=== PATIENT | male | born 2000 | race American Indian/Alaskan Native ===

== ENCOUNTER 2018-08-24 04:28 | Emergency (ER) | payer BC, MEDICAID, OTHER ==
[2018-08-24 04:34] VITALS: BP 145/70
[2018-08-24] MEDS ORDERED: FLEXERIL PO ONE (05:27)
[2018-08-24] MEDS ORDERED: TORADOL IV ONE (05:27)
[2018-08-24 06:45] LABS: Hemoglobin 12.7 gm/dl (11.8-15.2)
[2018-08-24 06:52] LABS: Basophils % (Auto) 0.5 % (0.0-1.8); Eosinophils # (Auto) 0.1 K/mm3 (0.0-0.4); Eosinophils % (Auto) 1.3 % (0.0-4.3); Hematocrit 39.3 % (35.5-45.6); Lymphocytes # (Auto) 1.7 K/mm3 (1.2-5.4); Mean Corpuscular HGB Conc 32 % (32-34); Monocytes # (Auto) 0.7 K/mm3 (0.0-0.8); Monocytes % (Auto) 8.3 % (0.0-7.3); Platelet Count 285 K/mm3 (140-440); Red Blood Count 5.76 M/mm3 (3.65-5.03); Red Cell Distribution Width 16.9 % (13.2-15.2)
[2018-08-24 06:53] LABS: Mean Corpuscular Volume 68 fl (84-94)
--- NOTE | 2018-08-24 07:08 | XRay Report ---
PROCEDURE: XR CHEST ROUTINE 2V TECHNIQUE: PA and lateral chest radiographs were obtained. HISTORY: cough COMPARISONS: None. FINDINGS: No mediastinal shift. Cardiac silhouette is not enlarged. No pneumothorax, effusion, or focal pulmo nary opacity. No acute skeletal finding. IMPRESSION: No focal pulmonary opacity. This document is electronically signed by Martinez Leavitt MD., August 24 2018 08:07:00 AM ET
[2018-08-24 07:16] LABS: Alanine Aminotransferase 17 units/L (7-56); BUN/Creatinine Ratio 16; Blood Urea Nitrogen 11 mg/dL (9-20); Calcium 9.2 mg/dL (8.4-10.2); Hemolysis Index 2
--- NOTE | 2018-08-24 07:39 | Emergency Department Report ---
ED General Adult HPI - General Chief complaint: Pain General Stated complaint: PAIN OVER BODY Time Seen by Provider: 08/24/18 07:04 Source: patient Mode of arrival: Ambulatory Limitations: No Limitations - History of Present Illness Initial comments: This is a 18-year-old -[place] male who presents the emergency room with generalized body aches for 2 days. Reports increase in pain over the past 2 days without injury. He reports pain as achy sensation. He has not tried anything for symptom relief. He denies fever, cough, coryza, nausea, vomiting, diarrhea, weakness, or parasthesia. Onset/Timin -: days(s) Radiation: non-radiation Severity scale (0 -10): 0 Quality: aching Consistency: intermittent Improves with: none Worsens with: none Associated Symptoms: denies other symptoms Treatments Prior to Arrival: none - Related Data Previous Rx's Medication Instructions Recorded Last Taken Type Ibuprofen [Motrin 600 MG tab] 600 mg PO Q8H PRN #14 tablet 04/10/15 Unknown Rx Ibuprofen [Motrin 800 MG tab] 800 mg PO Q8HR PRN #20 tablet 08/24/18 Unknown Rx methOCARBAMOL [Robaxin TAB] 500 mg PO BID PRN #15 tab 08/24/18 Unknown Rx Allergies Allergy/AdvReac Type Severity Reaction Status Date / Time No Known Allergies Allergy Unverified 04/10/15 18:27 ED Review of Systems ROS: Stated complaint: PAIN OVER BODY Other details as noted in HPI Constitutional: denies: chills, fever Respiratory: denies: cough, shortness of breath, wheezing Cardiovascular: denies: chest pain, palpitations Gastrointestinal: denies: abdominal pain, nausea, diarrhea Musculoskeletal: myalgia. denies: back pain, joint swelling, arthralgia Skin: denies: rash, lesions Neurological: denies: headache, weakness, paresthesias Psychiatric: denies: anxiety, depression ED Past Medical Hx - Past Medical History Previous Medical History?: No - Surgical History Past Surgical History?: Yes Additional Surgical History: PET, Left Ear surgery - Social History Smoking Status: Never Smoker - Medications Home Medications: Home Medications Medication Instructions Recorded Confirmed Last Taken Type Ibuprofen [Motrin 600 MG tab] 600 mg PO Q8H PRN #14 tablet 04/10/15 Unknown Rx Ibuprofen [Motrin 800 MG tab] 800 mg PO Q8HR PRN #20 tablet 08/24/18 Unknown Rx methOCARBAMOL [Robaxin TAB] 500 mg PO BID PRN #15 tab 08/24/18 Unknown Rx ED Physical Exam - General Limitations: No Limitations General appearance: alert, in no apparent distress, obese (morbidly obese) - ENT ENT exam: Present: mucous membranes moist - Neck Neck exam: Present: normal inspection - Respiratory Respiratory exam: Present: normal lung sounds bilaterally. Absent: respiratory distress - Cardiovascular Cardiovascular Exam: Present: regular rate, normal rhythm. Absent: systolic murmur, diastolic murmur, rubs, gallop - GI/Abdominal GI/Abdominal exam: Present: soft, normal bowel sounds, other (obese abdomen). Absent: distended, tenderness, guarding, rebound, rigid - Back Exam Back exam: Present: full ROM. Absent: CVA tenderness (R), CVA tenderness (L), m uscle spasm, paraspinal tenderness, vertebral tenderness - Neurological Exam Neurological exam: Present: alert, oriented X3, normal gait - Psychiatric Psychiatric exam: Present: normal affect, normal mood - Skin Skin exam: Present: warm, dry, intact, normal color. Absent: rash ED Course Vital Signs 08/24/18 08/24/18 08/24/18 04:33 04:40 06:00 Temperature 98.2 F 98.2 F Pulse Rate 95 H 87 Respiratory 18 18 18 Rate Blood Pressure 145/70 145/70 O2 Sat by Pulse 100 100 Oximetry ED Medical Decision Making - Lab Data Result diagrams: 08/24/18 05:50 08/24/18 05:50 Lab Results 08/24/18 08/24/18 08/24/18 Range/Units 05:50 05:50 05:50 WBC 8.8 (4.5-11.0) K/mm3 RBC 5.76 H (3.65-5.03) M/mm3 Hgb 12.7 (11.8-15.2) gm/dl Hct 39.3 (35.5-45.6) % MCV 68 L (84-94) fl MCH 22 L (28-32) pg MCHC 32 (32-34) % RDW 16.9 H (13.2-15.2) % Plt Count 285 (140-440) K/mm3 Lymph % (Auto) 20.0 (13.4-35.0) % Dickenson % (Auto) 8.3 H (0.0-7.3) % Eos % (Auto) 1.3 (0.0-4.3) % Baso % (Auto) 0.5 (0.0-1.8) % Lymph # 1.7 (1.2-5.4) K/mm3 Dickenson # 0.7 (0.0-0.8) K/mm3 Eos # 0.1 (0.0-0.4) K/mm3 Baso # 0.0 (0.0-0.1) K/mm3 Seg Neutrophils % 69.9 (40.0-70.0) % Seg Neutrophils # 6.1 (1.8-7.7) K/mm3 Sodium 142 (137-145) mmol/L Potassium 3.9 (3.6-5.0) mmol/L Chloride 106.0 (98-107) mmol/L Carbon Dioxide 22 (22-30) mmol/L Anion Gap 18 mmol/L BUN 11 (9-20) mg/dL Creatinine 0.7 L (0.8-1.5) mg/dL Estimated GFR > 60 ml/min BUN/Creatinine Ratio 16 % Glucose 109 H (75-100) mg/dL Calcium 9.2 (8.4-10.2) mg/dL Total Bilirubin 0.20 (0.1-1.2) mg/dL AST 17 (5-40) units/L ALT 17 (7-56) units/L Alkaline Phosphatase 70 (35-129) units/L Total Creatine Kinase 401 H (55-170) units/L Total Protein 7.3 (6.3-8.2) g/dL Albumin 4.0 (3.9-5) g/dL Albumin/Globulin Ratio 1.2 % - Radiology Data Radiology results: report reviewed PROCEDURE: XR CHEST ROUTINE 2V TECHNIQUE: PA and lateral chest radiographs were obtained. HISTORY: cough COMPARISONS: None. FINDINGS: No mediastinal shift. Cardiac silhouette is not enlarged. No pneumothorax, effusion, or focal pulmonary opacity. No acute skeletal finding. IMPRESSION: No focal pulmonary opacity. - Medical Decision Making Patient was examined by me. Vitals are normal and patient is in no acute distress. Obtained labs and chest x-ray. Elevation of CK without muscle weakness or sings of rhabdomyolysis. All other labs unremarkable. Chest x-ray negative for cardiopulmonary findings. Start ibuprofen and Robaxin for pain. Encouraged increased fluid intake. Plan discussed with patient to discharge home and treat outpatient. He agrees with ER plan. Patient discharged home in stable condition. Follow up with PCP in 2-3 days. Critical care attestation.: If time is entered above; I have spent that time in minutes in the direct care of this critically ill patient, excluding procedure time. ED Disposition Clinical Impression: Generalized muscle ache, Myalgia Disposition: TO HOME OR SELFCARE Is pt being admited?: No Does the pt Need Aspirin: No Condition: Stable Instructions: Musculoskeletal Pain (ED) Additional Instructions: Rest Use heat on affected area for 20 minutes and off for 2 hours. Take pain medication every 6-8 hours as needed for pain. Don't drive or operate heavy machinery while taking muscle relaxers because they may cause drowsiness. Follow up with Primary Care Provider in 2-3 days. Prescriptions: Ibuprofen [Motrin 800 MG tab] 800 mg PO Q8HR PRN #20 tablet PRN Reason: Pain , Severe (7-10) methOCARBAMOL [Robaxin TAB] 500 mg PO BID PRN #15 tab PRN Reason: Muscle Spasm Referrals: [facility] [Outside] - 3-5 Days [facility] [Outside] - 3-5 Days [facility] [Outside] - 3-5 Days Forms: Work/School Release Form(ED) Time of Disposition: 08:57
== END 2018-08-24 09:08 | disposition home or self-care (01) ==
LOC: ED 04:28
DX: M79.18 Myalgia, other site (principal); Z98.890 Other specified postprocedural states
CPT/HCPCS: 36415; 71046; 80053; 82550; 85025; 96374; 99284; J1885

== ENCOUNTER 2020-07-21 18:02 | Emergency (ER) | payer SELFPAY ==
[2020-07-21 20:59] VITALS: BP 103/48
--- NOTE | 2020-07-21 21:25 | Emergency Department Report ---
ED Lower Extremity HPI - General Chief Complaint: Extremity Injury, Lower Stated Complaint: LT LEG/ANKLE/FOOT PAIN Time Seen by Provider: 07/21/20 21:00 Source: patient Mode of arrival: Ambulatory Limitations: No Limitations - History of Present Illness Initial Comments: Patient is a 20-year-old male presents emergency room complaints of left ankle and left foot pain that began yesterday. He states that he was playing basketball and went up for the ball and then when he came down he felt a popping sensation in his ankle. He states since then he has had pain and swelling. He denies ever injuring the past. He is ambulatory with discomfort. He denies any numbness or weakness. No allergies to medications. - Related Data Previous Rx's Medication Instructions Recorded Last Taken Type Ibuprofen [Motrin 600 MG tab] 600 mg PO Q8H PRN #14 tablet 04/10/15 Unknown Rx Ibuprofen [Motrin 800 MG tab] 800 mg PO Q8HR PRN #20 tablet 08/24/18 Unknown Rx methOCARBAMOL [Robaxin TAB] 500 mg PO BID PRN #15 tab 08/24/18 Unknown Rx Ibuprofen [Motrin 600 MG tab] 600 mg PO Q8H PRN #20 tablet 07/21/20 Unknown Rx Allergies Allergy/AdvReac Type Severity Reaction Status Date / Time No Known Allergies Allergy Unverified 04/10/15 18:27 ED Review of Systems ROS: Stated complaint: LT LEG/ANKLE/FOOT PAIN Other details as noted in HPI Comment: All other systems reviewed and negative ED Past Medical Hx - Past Medical History Previous Medical History?: Yes Additional medical history: Obesity - Surgical History Past Surgical History?: Yes Additional Surgical History: PET, Left Ear surgery - Social History Smoking Status: Never Smoker Substance Use Type: Marijuana - Medications Home Medications: Home Medications Medication Instructions Recorded Confirmed Last Taken Type Ibuprofen [Motrin 600 MG tab] 600 mg PO Q8H PRN #14 tablet 04/10/15 Unknown Rx Ibuprofen [Motrin 800 MG tab] 800 mg PO Q8HR PRN #20 tablet 08/24/18 Unknown Rx methOCARBAMOL [Robaxin TAB] 500 mg PO BID PRN #15 tab 08/24/18 Unknown Rx Ibuprofen [Motrin 600 MG tab] 600 mg PO Q8H PRN #20 tablet 07/21/20 Unknown Rx ED Physical Exam - General Limitations: No Limitations General appearance: alert, in no apparent distress - Head Head exam: Present: atraumatic, normocephalic - Eye Eye exam: Present: normal appearance - ENT ENT exam: Present: mucous membranes moist - Respiratory Respiratory exam: Absent: respiratory distress, accessory muscle use - Extremities Exam Extremities exam: Present: other (edema present to the left ankle, there is ttp of the ankle and dorsal foot, FROM of the LLE with discomfort upon ROM Of the ankle and foot, no obvious deformity, neurovascularly intact with strong distal pulse) - Neurological Exam Neurological exam: Present: alert, oriented X3 - Psychiatric Psychiatric exam: Present: normal affect, normal mood - Skin Skin exam: Present: warm, dry, intact ED Course Vital Signs 07/21/20 20:46 Temperature 98.3 F Pulse Rate 55 L Respiratory 18 Rate Blood Pressure 103/48 O2 Sat by Pulse 98 Oximetry ED Lower Extremity MDM - Radiology Data Radiology results: report reviewed Ordering Physician: KEYSHA NAVARRO Date of Service: 07/21/20 Procedure(s): XR ankle 3+V LT Accession Number(s): [id number] cc: KEYSHA NAVARRO Fluoro Time In Minutes: Left ankle 3 views INDICATION: Pain FINDINGS: Alignment appears normal. No acute fractures seen. Diffuse swelling throughout the ankle. Left foot 3 views INDICATION: Injury FINDINGS: MTP joints appear normal. Diffuse swelling within the ankle. No acute fractures seen. Signer Name: Yogesh Mitchell MD Signed: 07/21/2020 9:23 PM Workstation Name: [id number] Transcribed By: Dictated By: PAMELA MITCHELL MD Electronically Authenticated By: PAMELA MITCHELL MD Signed Date/Time: 07/21/202122 DD/ 21 TD/TT: - Medical Decision Making Patient is a 20-year-old male presents emergency room complaints of left ankle and left foot pain that began yesterday. He states that he was playing basketball and went up for the ball and then when he came down he felt a popping sensation in his ankle. He states since then he has had pain and swelling. He denies ever injuring the past. He is ambulatory with discomfort. He denies any numbness or weakness. No allergies to medications. vss. on exam: edema present to the left ankle, there is ttp of the ankle and dorsal foot, FROM of the LLE with discomfort upon ROM Of the ankle and foot, no obvious deformity, neurovascularly intact with strong distal pulse. X-ray left foot: FINDINGS: MTP joints appear normal. Diffuse swelling within the ankle. No acute fractures seen. X-ray left ankle: FINDINGS: Alignment appears normal. No acute fractures seen. Diffuse swelling throughout the ankle. Findings most consistent with ankle sprain. Patient placed in ankle stirrup splint by nurse and remained neurovascular intact, patient given crutches and crutch instructions by nurse. Advised not to bear weight and discussed the importance of orthopedic follow-up. Patient given prescription for ibuprofen. Advised patient Please take medication as prescribed as needed. May ice for 15 minutes at a time, rest, elevate the leg. Do not bear weight on the leg. Follow-up with orthopedic doctor. Return to emergency room for new or symptoms. Critical care attestation.: If time is entered above; I have spent that time in minutes in the direct care of this critically ill patient, excluding procedure time. ED Disposition Clinical Impression: Left ankle sprain Qualifiers: Encounter type: initial encounter Involved ligament of ankle: unspecified ligament Qualified Code(s): S93.402A - Sprain of unspecified ligament of left ankle, initial encounter Disposition: TO HOME OR SELFCARE Is pt being admited?: No Does the pt Need Aspirin: No Condition: Stable Instructions: Ankle Sprain, [id number] Additional Instructions: Please take medication as prescribed as needed. May ice for 15 minutes at a time, rest, elevate the leg. Do not bear weight on the leg. Follow-up with orthopedic doctor. Return to emergency room for new or symptoms. Prescriptions: Ibuprofen [Motrin 600 MG tab] 600 mg PO Q8H PRN #20 tablet PRN Reason: Pain Referrals: PRIMARY CARE, [Primary Care Provider] - 2-3 Days VAMSI MCFADDEN MD [Staff Physician] - 2-3 Days [facility] [Provider Group] - 2-3 Days Forms: Work/School Release Form(ED), Work/School Release Form Time of Disposition: 22:02 Print Language: LATVIAN
== END 2020-07-21 22:41 | disposition home or self-care (01) ==
LOC: ED 18:02
DX: S93.402A Sprain of unspecified ligament of left ankle, initial encounter (principal); F12.90 Cannabis use, unspecified, uncomplicated; E66.9 Obesity, unspecified; Z98.890 Other specified postprocedural states; Z79.899 Other long term (current) drug therapy; Z68.42 Body mass index [BMI] 45.0-49.9, adult; X58.XXXA Exposure to other specified factors, initial encounter; Y93.67 Activity, basketball; Y92.89 Other specified places as the place of occurrence of the external cause; Y99.8 Other external cause status